=== PATIENT | male | born 1990 | race Caucasian/White ===

== ENCOUNTER 2025-05-25 19:43 | Inpatient (IN) | payer MEDICAID ==
[~2025-05-25] VITALS: Ht 170.2 cm; Wt 69.9 kg
[2025-05-25] MEDS: DIPHENHYDRAMINE 50MG/ML VIAL IM ONE (20:55)
[2025-05-25] MEDS: MIDAZOLAM HCL 2 MG/2 ML VIAL IM ONE (20:56)
[2025-05-25] MEDS: HALOPERIDOL LACTATE 5MG/ML VIAL IM ONE (20:56)
[2025-05-25 21:10] VITALS: PULSE 117; RESP 12; TEMP 98.6
[2025-05-25 21:38] LABS: BASOPHILS % 0.5 % (0.0-2.0); EOSINOPHILS % 0.4 % (0.0-5.0); HEMATOCRIT. 42.6 % (42.0-52.0); HEMOGLOBIN. 14.4 g/dL (14.0-18.0); LYMPHOCYTES % 11.2 % (20.0-50.0); MEAN PLATELET VOLUME 7.1 fl (7.4-10.4); MONOCYTES % 4.3 % (2.0-8.0); NEUTROPHILS % 83.6 % (40.0-76.0); PLATELET 349 x1000/uL (130-400); RED BLOOD CELL COUNT 4.74 mill/uL (4.7-6.1); RED CELL DISTRIBUTION WIDTH 12.2 % (11.6-14.6)
[2025-05-25 21:52] LABS: CREATININE 1.0 mg/dL (0.6-1.3); UREA NITROGEN BLOOD 14 mg/dL (9-23)
[2025-05-25 21:54] LABS: ASPARTATE AMINOTRANSFERASE 25 IU/L (<34); BILIRUBIN DIRECT < 0.1 mg/dL (<=3.0); BILIRUBIN TOTAL 0.4 mg/dL (0.1-1.0); PROTEIN TOTAL 7.6 g/dL (6.0-8.3)
[2025-05-25 23:55] VITALS: O2SAT 99
[2025-05-26 02:53] VITALS: BP 101/73; PULSE 88; RESP 16; TEMP 36.8072
[2025-05-26] MEDS ORDERED: LORAZEPAM 2MG/ML UD SYRINGE IV PRN (06:00)
[2025-05-26] MEDS ORDERED: ONDANSETRON HCL 4MG/2ML INJ IV PRN (06:00)
[2025-05-26 08:00] VITALS: BP 91/50; PULSE 85; RESP 17; TEMP 36.4; O2SAT 97
[2025-05-26] MEDS: PANTOPRAZOLE SODIUM 40 MG/VIAL IV SCH (11:13)
[2025-05-26 12:00] VITALS: BP 100/63; PULSE 77; RESP 17; TEMP 36.5; O2SAT 97
[2025-05-26] MEDS: FOLIC ACID 1 MG, THIAMINE HCL 100 MG, MVI, ADULT NO.1 10 ML in DEXTROSE 5% WATER 1,000 ML IV SCH (12:20)
[2025-05-26 16:00] VITALS: BP 101/70; PULSE 100; RESP 19; TEMP 36.6; O2SAT 97
[2025-05-26 20:00] VITALS: BP 98/62; PULSE 85; RESP 18; TEMP 36.2; O2SAT 99
[2025-05-27 04:00] VITALS: BP 105/66; PULSE 82; RESP 18; TEMP 36.4; O2SAT 100
[2025-05-27 08:00] VITALS: BP 103/59; PULSE 64; RESP 18; TEMP 36.6; O2SAT 97
[2025-05-27 12:00] VITALS: BP 110/71; PULSE 70; RESP 18; TEMP 36.7; O2SAT 97
[2025-05-27 16:00] VITALS: BP 126/82; PULSE 81; RESP 18; TEMP 36.8; O2SAT 96
[2025-05-27 16:21] VITALS: BP 110/70; PULSE 70; RESP 20; TEMP 98
[2025-05-27 16:33] LABS: *AMPHETAMINES SCREEN URINE NEGATIVE (NEGATIVE); *BARBITURATES SCREEN URINE NEGATIVE (NEGATIVE); *BENZODIAZEPINES SCREEN URINE PRESUMPTIVE POSITIVE (NEGATIVE); *COCAINE SCREEN URINE PRESUMPTIVE POSITIVE (NEGATIVE); CANNABINOID URINE SCREEN NEGATIVE (NEGATIVE); ECSTASY MDMA SCREEN URINE NEGATIVE (NEGATIVE); METHADONE URINE SCREEN NEGATIVE (NEGATIVE); OPIATES URINE SCREEN NEGATIVE (NEGATIVE); PHENCYCLIDINE URINE SCREEN NEGATIVE (NEGATIVE)
[2025-05-27] MEDS ORDERED: FAMOTIDINE 20MG/2ML VIAL IV SCH (21:00)
== END 2025-05-27 18:04 | disposition home or self-care (01) | DRG 775 ==
LOC: ER 19:43 → 8WST 05-26 00:33 → EDBEDREQTM 05-26 00:42 → EDBEDREQSVC 05-26 00:42 → EDBEDREQDT 05-26 00:42 → EDBEDREQ 05-26 00:42 → ENRESERV 05-26 01:01
PROVIDERS: ADMIT Internal Medicine; ATTEND Internal Medicine
DX: F10.129 Alcohol abuse with intoxication, unspecified (principal); Z71.41 Alcohol abuse counseling and surveillance of alcoholic; Y90.8 Blood alcohol level of 240 mg/100 ml or more
CPT/HCPCS: 36415; 70486; 73600; 80048; 80076; 80305; 80320; 85025; 93005; 96372; 97161; 99291; A4606; J1200; J1630; J2250; J2470; J3411; J3490; J7070; G0480